=== PATIENT | male | born 1950 | race Caucasian/White ===

== ENCOUNTER 2018-01-22 16:17 | Inpatient (IN) ==
[2018-01-22] MEDS ORDERED: Ipratropium/Albuterol Neb 3 ML IH ONE (16:21)
--- NOTE | 2018-01-22 16:38 | Emergency Department Note ---
Disposition Clinical Impression: HCAP (healthcare-associated pneumonia) Disposition: Admitted As Inpatient Condition: Good Forms: ED Satisfaction Letter SOB HPI - General Chief Complaint: ED Shortness of Breath/Dyspnea Stated Complaint: shortness of breath Time Seen by Provider: 01/22/18 16:20 Source: patient, EMS Limitations: no limitations Nursing Notes Reviewed: Yes Vital Signs Reviewed: Yes - History of Present Illness Patient [facility] a transfer [facility] for [facility], pneumonia, hypoglycemia. Patient has a history of diabetes and takes insulin but has not been eating. The patient has had symptoms for 3 days including cough and productive sputum. The patient underwent treatment at the [facility] and received steroids as well as DuoNeb's. The patient's blood cell count was 14.4 with a hemoglobin of 14.7. Platelets 203. Troponin was negative. Electrolytes with sodium of 138. Potassium 4.3. Glucose of 51. Creatinine of 0.95. PH 7.41. CO2 of 47. This does appear to be his baseline. PO2 of 67. Lactate of 0.9. X-ray shows worsening bibasilar airspace disease concerning for pneumonia. Recommend follow-up chest x-ray Patient takes albuterol, Abandoned, atorvastatin, clonidine, diltiazem, gabapentin, hydrocodone, insulin, methotrexate, potassium, 10 mg of steroids daily. EKG shows A. fib with a ventricular rate of 105. QRS 82. QTC 415. No significant ST elevations or depressions. - Related Data Allergies Allergy/AdvReac Type Severity Reaction Status Date / Time metformin AdvReac See Verified 01/22/18 16:22 Comments Review of Systems: CONSTITUTIONAL: No weight loss, fever, chills, weakness or fatigue. HEENT: Eyes: No visual changes. Ears, Nose, Throat: No hearing loss, difficulty talking or unable to swallow. SKIN: No rash or itching. CARDIOVASCULAR: No chest pain, chest pressure or chest discomfort. No palpitations or edema. RESPIRATORY: Shortness of breath and cough GASTROINTESTINAL: No anorexia, nausea, vomiting or diarrhea. No abdominal pain or blood. GENITOURINARY: No burning on urination or hematuria. NEUROLOGICAL: No headache, dizziness, syncope, paralysis, ataxia, numbness or tingling in the extremities. No change in bowel or bladder control. MUSCULOSKELETAL: No muscle pain, back pain, joint pain or stiffness. Past Medical History - Past Medical History Medical history: Reports: arthritis, atrial fibrillation, cancer, COPD, coronary artery disease, diabetes, hyperlipidemia, hypertension Psychiatric history: Reports: anxiety, ADHD, depression - Social History Smoking Status: Current every day smoker Smokeless Tobacco Status: No Alcohol use: Reports: none Drug use: Reports: none Physical Exam General: Mild tachypnea Head: Normocephalic Atraumatic Eyes: PERRL, EOMI ENT: Airway patent, no stridor Neck: supple, no meningismus Chest: Wheezing and associated bronchi bilaterally Cardiac: Irregular rate and rhythm Abdomen: soft, nontender, nondistended; no guarding, rebound, or tenderness to percussion Musculoskeletal: Calves symmetric, nontender, no palpable cord Skin: No rash, normal skin tone Neuro: Alert and Oriented to person, place, and time; No focal deficit, CN 2-12 symmetric and intact - General Limitations: no limitations General appearance: alert Course - Reevaluation(s) Reevaluation #1: Patient received ceftriaxone while at the [facility]. The patient has had hospitalization for pneumonia at the [facility] within the last 3 months. Patient's antibiotics will be broadened to cover hospital acquired pneumonia. - Consultations Consultation #1: Discussed with Dr. Hilario. Patient accepted for admission. Vital Signs Temperature 98.3 F 01/22/18 16:23 Pulse Rate 119 01/22/18 16:23 Respiratory Rate 105 01/22/18 16:23 Blood Pressure 117/93 01/22/18 16:23 O2 Sat by Pulse Oximetry 93 01/22/18 16:23 Temperature 98.3 F 01/22/18 16:23 Pulse Rate 94 01/22/18 18:00 Respiratory Rate 24 01/22/18 18:00 Blood Pressure 125/70 01/22/18 18:00 O2 Sat by Pulse Oximetry 94 01/22/18 18:00 Oxygen Delivery Oxygen Delivery Nasal Cannula Shortness of Breath/Dyspnea - Lab Data Result diagrams: 01/22/18 18:06 Lab Results 01/22/18 01/22/18 Range/Units 18:06 18:06 WBC 15.9 H (4.3-11.1) K/mcL RBC 4.78 (4.19-5.50) M/mcL Hgb 14.0 (12.9-16.9) g/dL Hct 44.5 (37.5-50.1) % MCV 93.1 (83.0-100.0) fL MCH 29.3 (28.0-33.3) pg MCHC 31.5 L (31.6-35.5) g/dL RDW 16.3 H (11.5-14.5) % Plt Count 199 (140-400) K/mcL MPV 10.4 (9.4-12.4) fL Immature Gran % 0.4 (0-4) % Seg Neutrophils % 96.2 % Lymphocytes % 1.3 % Monocytes % 2.0 % Eosinophils % 0.0 % Basophils % 0.1 % Neutrophils # 15.3 H (1.6-8.9) K/mcL Lymphocytes # 0.2 L (0.6-4.6) K/mcL Monocytes # 0.3 (0.0-1.3) K/mcL Eosinophils # 0.0 (0.0-0.6) K/mcL Basophils # 0.0 (0.0-0.2) K/mcL Lactic Acid 1.5 (0.5-2.2) mmol/L
[2018-01-22] MEDS ORDERED: Piperacillin/Tazobactam 3.375 GM in 0.9 % Sodium Chloride Mini Bag 100 ML IVPB ONE (16:44)
[2018-01-22] MEDS ORDERED: Levofloxacin 750 MG/150 ML 750 MG/150 ML BAG IVPB ONE (16:44)
[2018-01-22] MEDS ORDERED: 0.9 % Sodium Chloride 1,000 ML IVC ONE (16:45)
[2018-01-22 18:24] LABS: Basophils % 0.1 %; Hematocrit 44.5 % (37.5-50.1); Immature Granulocytes % 0.4 % (0-4); Lymphocytes # 0.2 K/mcL (0.6-4.6); Lymphocytes % 1.3 %; Mean Corpuscular HGB Conc 31.5 g/dL (31.6-35.5); Mean Corpuscular Hemoglobin 29.3 pg (28.0-33.3); Mean Corpuscular Volume 93.1 fL (83.0-100.0); Mean Platelet Volume 10.4 fL (9.4-12.4); Monocytes # 0.3 K/mcL (0.0-1.3); Neutrophils # 15.3 K/mcL (1.6-8.9); Platelet Count 199 K/mcL (140-400); Red Blood Count 4.78 M/mcL (4.19-5.50); Red Cell Distribution Width 16.3 % (11.5-14.5); Segmented Neutrophils % 96.2 %
--- NOTE | 2018-01-22 18:28 | Emergency Department Note ---
START Narrative - START START: I examined this patient and my medical decision-making was reviewed with the emergency medicine resident. I agree with the documented findings, disposition and treatment plan as described except to the extent set forth below. Patient seen with emergency medicine resident Dr. Gokul Zuluaga, Please see a copy of his note for details of the H&P, ED evaluation, management and disposition. I have independently evaluated the patient and confirmed appropriate portions of the history and physical exam. Briefly: 67-year-old male smoker [employer] from the [place] transferred from the [facility] for COPD flare and pneumonia. Patient got a dose of IV Rocephin and Zithromax. Patient had bilateral auditory wheezing here. We reviewed his medical records. He got a triple DuoNeb treatment. Patient had an EKG which showed no acute ischemic changes. Hospitalist is being patient for admission. Patient to be admitted in stable condition. Disposition pending
[2018-01-22 18:43] LABS: ABG Base Excess 4 mEq/L (-2 to 3); ABG HCO3 30 mEq/L (21-27); ABG Oxygen Saturation 93 % (95-98); ABG PCO2 50 mmHg (35-45); ABG PH 7.38 pH Units (7.32-7.45); ABG PO2 68 mmHg (85-104); ABG TCO2 31 mEq/L (20-26)
[2018-01-22 18:44] LABS: Alanine Aminotransferase 18 Units/L (7-52); Albumin 3.7 g/dL (3.5-5.7); Albumin/Globulin Ratio 1.3 (1.1-2.2); Alkaline Phosphatase 106 Units/L (34-104); Aspartate Amino Transferase 21 Units/L (13-39); BUN/Creatinine Ratio 14 (6-26); Bilirubin,Total 0.4 mg/dL (0.3-1.0); Blood Urea Nitrogen 14 mg/dL (8-23); Calcium 9.5 mg/dL (8.6-10.3); Carbon Dioxide 29 mEq/L (23-29); Chloride 100 mEq/L (98-107); Globulin 2.9 g/dL (2.4-3.5); Glucose 205 mg/dL (70-105); Osmolality,Calculated 286 (280-300); Potassium 4.8 mEq/L (3.5-5.1); Sodium 135 mEq/L (136-145); Total Protein 6.6 g/dL (6.4-8.9); eGFR For African Americans > 60 (> 60); eGFR For Non-African Americans > 60 (> 60)
[2018-01-22] MEDS ORDERED: Acetaminophen 325 MG TABLET PO PRN (18:59)
[2018-01-22] MEDS ORDERED: *HR* OxyCODONE Immed Rel 5 MG TABLET PO PRN (18:59)
[2018-01-22] MEDS ORDERED: Naloxone 0.4 MG/ML INJ IVP PRN (18:59)
[2018-01-22] MEDS ORDERED: Levofloxacin 750 MG/150 ML 750 MG/150 ML BAG IVPB SCH (20:00)
[2018-01-22] MEDS ORDERED: D5% in Water 1,000 ML IVC PRN (21:01)
[2018-01-22] MEDS ORDERED: *HR* Dextrose 50 % in Water (Syg) 50 ML SYRINGE IVP PRN (21:01)
[2018-01-22] MEDS ORDERED: Dextrose Gel 15 GM/37.5 ML TUBE PO PRN ×2 (21:01)
--- NOTE | 2018-01-22 21:02 | Internal Med History&Physical ---
<Fran Baird - Last Filed: 01/22/18 23:51> Date of Encounter: 01/22/18 Time of Encounter: 18:30 Assessment and Plan (1) HCAP (healthcare-associated pneumonia) Current visit: Yes Status: Acute Acute HCAP. Pt. reports shortness of breath and dyspnea for the past 3 days with need to increase home oxygen from 2 L to 4 L. Associated cough with sputum production. Patient's pneumonia diagnosis complicated by current COPD exacerbation. History of tobacco abuse with 1-2 packs a day patient reports quitting 4 days ago. Patient hospitalized at NH within past 3 months for pneumonia. 2-View CXR today shows superimposed on COPD there is more pronounced congestion and perihilar infiltrates worse in the left lower lobe. Pneumonia is likely. Pt. started on IVPB Levaquin, Zosyn, vancomycin in ED. Will continue IVPB Levaquin at 750 mg daily, Zosyn 3.375 gm Q8, and vancomycin w/pharmacy dosing for infection coverage. Blood cultures 2. Sputum culture. Legionella and strep pneumoniae antigens were ordered. Will adjust abx coverage based on culture results. Supplemental O2 titration if SPO2 monitoring. BiPAP as needed. DuoNeb every 4 hours scheduled. Solu-Medrol 60 mg IVPB every 8. Falls /safety precautions. Monitor patient, vital signs, and f/u labs. Lactic acid 1.5. Will use IV fluids judiciously d/t possibility of overlapping CHF. Pt. discussed w/Dr. Tipton who agrees w/plan of care. Pt. high risk for respiratory distress/failure and possible sepsis based on current sx, pneumonia dx complicated by COPD exacerbation, tobacco abuse, hx, and risk factors. Inpatient. (2) SOB (shortness of breath) Current visit: Yes Status: Acute Acute SOB/dyspnea r/t current exacerbation of COPD complicated by current pneumonia dx. Solumedrol 60 mg IVP Q8. Supplemental O2 w/titration and SpO2 monitoring. BiPap as needed. ABG ordered. DuoNebs Q4 scheduled. Falls/safety precautions. (3) Tachycardia Current visit: Yes Status: Acute Acute tachycardia r/t SOB/dyspnea and hypoxia. Pt. takes 240 mg cardizem in a.m. and reports taking dose this morning. Will monitor timed VS. 20 mg cardizem IVP once ordered. Continuous telemetry. Patient to be monitored closely for possible cardizem drip. (4) Cough Current visit: Yes Status: Acute Acute productive cough w/sputum. Sputum culture ordered. Mucinex. (5) COPD (chronic obstructive pulmonary disease) Current visit: Yes Status: Acute Acute exacerbation of COPD complicated by current pneumonia dx. Supplemental O2 w/titration and SpO2 monitoring. DuoNebs Q4 scheduled. Solumedrol 60 mg IVP Q8. Mucinex for cough. Qualifiers: COPD type: COPD with acute exacerbation Qualified Code(s): J44.1 - Chronic obstructive pulmonary disease with (acute) exacerbation (6) CAD (coronary artery disease) Current visit: Yes Status: Chronic Hx of chronic CAD. Continuous telemetry. Continue pts. Eliquis, Cardizem, Lipitor, and lisinopril. Qualifiers: Coronary Disease-Associated Artery/Lesion type: [place] artery [place] vs. transplanted heart: [place] heart Associated angina: angina presence unspecified Qualified Code(s): I25.10 - Atherosclerotic heart disease of [place] coronary artery without angina pectoris (7) Diabetes Current visit: Yes Status: Chronic Hx of chronic DM controlled w/insulin. BG checks ACHS. A1c in a.m. labs. Continue pts. HS insulin and add low-dose correction insluin sliding scale w/ hypoglycemic protocol. Qualifiers: Diabetes mellitus type: type 2 Diabetes mellitus complication status: with unspecified complications Diabetes mellitus truck terminal manager insulin use: unspecified longterm insulin use status Qualified Code(s): E11.8 - Type 2 diabetes mellitus with unspecified complications (8) HLD (hyperlipidemia) Current visit: Yes Status: Chronic Hx of chronic HLD. Lipid panel in a.m. labs. Continue pts. Lipitor. Qualifiers: Hyperlipidemia type: pure hypercholesterolemia Qualified Code(s): E78.00 - Pure hypercholesterolemia, unspecified; E78.0 - Pure hypercholesterolemia (9) HTN (hypertension) Current visit: Yes Status: Chronic Hx of chronic HTN. Monitor pt. and VS. Continue pts. Lisinopril. Qualifiers: Hypertension type: essential hypertension Qualified Code(s): I10 - Essential (primary) hypertension (10) DVT prophylaxis Current visit: Yes Status: Acute Continue patient's Eliquis for DVT prophylaxis. Monitor pt. for signs of bleeding. Internal Medicine - H&P: HPI Chief complaint: SOB/Dyspnea Admitted From: Emergency Dept Plans for Post Hospital Care: Home History of present illness: Mr. Cagle is a 67 year old male w/PMH of , atrial fibrillation, basal cell carcinoma skin, COPD, CAD, diabetes, HLD, HTN ED with chief complaint of shortness of breath and dyspnea for the past 2 days that became worse over the past day. Pt. reports associated cough w/colored sputum. [facility]. Patient reports shortness of breath, dyspnea, cough with productive sputum, and dizziness associated with SOB but denies fever, chills, nausea, vomiting, changes in vision, headache, chest pain, palpitations, unusual bleeding, abdominal pain, diarrhea, constipation, numbness, tingling, pre-syncope, or syncope. Past Med Surg Social Fam HX - Past Medical History Source: patient, old records reviewed, obtained from family Medical history: arthritis, atrial fibrillation, cancer (Basal cell carcinoma of the skin), COPD, coronary artery disease, diabetes, hyperlipidemia, hypertension Psychiatric history: anxiety, ADHD, depression - Social History Smoking Status: Current every day smoker Packs per day: 1-2 PPD Reports quitting 4 days ago Smokeless Tobacco Status: No Alcohol use: none Drug use: none Current living situation: Home, With Family Activity Level: Independent ambulation, Uses cane/walker Recent Out of Country Travel Within the Last 8 Weeks: No Exposure or Possible Exposure to Illness During Travel: No - Family History Father Race: Family Member Ethnicity: Non- Living Status: Age at : 67 Cause of : Stomach aneurysm Hx Family Cardiac Disorders: Yes (Aneurysm) Mother Race: Family Member Ethnicity: Non- Living Status: Age at : 63 Cause of : Breast cancer Hx Family Cancer: Yes (Breast) Hx Family Endocrine Disorder: Yes (DM) Brother Race: Family Member Ethnicity: Non- Living Status: Age at : 48 Cause of : [place] Hx Family Cardiac Disorders: Yes ([place]) Sister Race: Family Member Ethnicity: Non- Living Status: Age at : 50 Cause of : Lung cancer Hx Family Cancer: Yes (Lung) Internal Medicine - H&P: Meds Albuterol Sulfate [Proair Hfa] 2 puff IH Q4H 01/22/18 [History] Apixaban [Eliquis] 5 mg PO DAILY 01/22/18 [History] Atorvastatin Calcium [Lipitor] 20 mg PO HS 01/22/18 [History] Budesonide/Formoterol 160/4.5 [Symbicort 160/4.5] 2 puff IH BIDR 01/22/18 [ History] Cetirizine HCl [All Day Allergy] 10 mg PO DAILY 01/22/18 [History] Cholecalciferol (D-3) [Vitamin D] 1,000 unit PO DAILY 01/22/18 [History] Cyanocobalamin (Vitamin B-12) [Vitamin B12] 1,000 mcg PO DAILY 01/22/18 [History ] Diltiazem HCl [Diltiazem 24Hr Cd] 240 mg PO DAILY 01/22/18 [History] Folic Acid 1 mg PO DAILY 01/22/18 [History] Gabapentin [Neurontin] 1.5 tab PO Q8H PRN 01/22/18 [History] HYDROcodone/Acet 10/325 mg [[place] 10-325 mg] 1 tab PO Q6HR PRN 01/22/18 [History ] Insulin ASPART [NovoLOG] 10 unit SQ TIDWM 01/22/18 [History] Insulin Glargine,Hum.rec.anlog [Lantus Solostar] 50 unit SQ HS 01/22/18 [History ] Ipratropium/Albuterol Neb [Duoneb] 3 ml IH Q6HR 01/22/18 [History] Lisinopril [Zestril] 40 mg PO DAILY 01/22/18 [History] Methocarbamol [Robaxin-750] 750 mg PO QID PRN 01/22/18 [History] Methotrexate [Otrexup] 12.5 mg PO QWEEK 01/22/18 [History] Oxybutynin [Ditropan] 5 mg PO BID 01/22/18 [History] Potassium Chloride [Klor-Con 10] 10 meq PO DAILY 01/22/18 [History] Tamsulosin [Flomax] 0.4 mg PO DAILY 01/22/18 [History] cloNIDine HCl [CloNIDine HCl] 0.1 mg PO BID 01/22/18 [History] predniSONE [PredniSONE] 10 mg PO AD 01/22/18 [History] 3 Allergy/AdvReac Type Severity Reaction Status Date / Time metformin AdvReac See Verified 01/22/18 16:22 Comments All Systems PM: A 10-system review of systems was performed and is negative for pertinent findings except as documented above in the HPI. - Constitutional Constitutional: no chills, no fever(s), no night sweats - EENT Eyes: no change in vision, no discharge, no pain, no photophobia Ears: no ear discharge, no ear pain, no tinnitus Nose, mouth and throat: no dysphagia, no nasal discharge, no neck pain, no sore throat - Breasts Breasts: as per HPI - Cardiovascular Cardiovascular ROS IM: as per HPI, dyspnea, dyspnea on exertion, lightheadedness , no chest pain, no diaphoresis, no palpitations, no syncope - Respiratory Respiratory: as per HPI, cough, dyspnea on exertion, wheezing, chest congestion , no dyspnea, no excessive phlegm production - Gastrointestinal Gastrointestinal: no abdominal pain, no diarrhea, no hematemesis, no hematochezia, no melena, no nausea, no vomiting - Genitourinary Genitourinary ROS male: as per HPI - Musculoskeletal Musculoskeletal ROS IM: no numbness, no tingling - Integumentary Integumentary IM: no rash, no unusual bruising - Neurological Neurological ROS: no confusion, no convulsions, no focal weakness, no numbness, no tingling, no tremor(s) - Psychiatric Psychiatric: as per HPI, anxiety, depression - Endocrine Endocrine IM: as per HPI - Hematologic/Lymphatic Hematologic/Lymphatic: no easy bruising - Allergic/Immunologic Allergic/Immunologic: as per HPI - Constitutional Vitals: Temp Pulse Resp BP Pulse Ox 98.3 F 122 18 110/78 93 01/22/18 16:23 01/22/18 20:16 01/22/18 20:47 01/22/18 20:47 01/22/18 20:47 General appearance: Present: cooperative, mild distress (Respiratory), A&O X 3, pleasant, obese, answers questions appropriately - Head Head exam: Present: atraumatic, normocephalic - Eye Eye exam: Present: PERRL, conjuntiva pink, sclera anicteric Pupils: Present: PERRL - ENT ENT exam: Present: normal exam - Neck Neck exam general surgery: Present: supple, trachea midline. Absent: lymphadenopathy - Respiratory Respiratory exam: Present: accessory muscle use, respiratory distress (Mild ), wheezes (Bilaterally in all lobes) - Cardiovascular Cardiovascular exam: Present: irregular rhythm (Atrial fibrillation). Absent: diastolic murmur, gallop, rubs, systolic murmur - GI/Abdominal GI/Abdominal exam: Present: normal bowel sounds, soft, no peritoneal signs. Absent: distended, tenderness - Rectal Rectal exam: Present: deferred - Additional comments: exam deferred. - Extremities Exam Extremities exam: Present: pedal edema, warm, radial pulses palpable and symmetrical. Absent: calf tenderness, cyanotic - Back Exam Back exam: Present: normal inspection - Neurological Exam Neurological exam: Present: CN II-XII intact, oriented X3, no focal deficits. Absent: pronater drift, facial droop, speech deficit - Psychiatric Psychiatric exam: Present: normal affect, normal mood - Skin Skin exam: Present: dry, intact Internal Med - H&P Results - Labs CBC & Chem 7: 01/22/18 18:06 01/22/18 18:06 - EKG Data Prior EKG available for review: no EKG comments: 01/22/18 21:41 EKG dated 01/22/18 shows atrial fibrillation with rapid ventricular response. - Impressions Impressions Chest X-Ray 01/22/18 17:36 IMPRESSION: Superimposed on COPD there is more pronounced congestion and perihilar infiltrates worse in the left lower lobe. Pneumonia is likely. D/ / 01/22/2018 18:46:48 Livier Cortez MD / abbi Interpreting Provider: Livier Cortez MD <Tay Tipton P - Last Filed: 01/23/18 19:48> Date of Encounter: 01/23/18 Internal Medicine - H&P: HPI History of present illness: Mr. Cagle is a 67 year old male All Systems PM: A 10-system review of systems was performed and is negative for pertinent findings except as documented above in the HPI. - Constitutional Vitals: Temp Pulse Resp BP Pulse Ox 97.8 F 104 18 113/67 97 01/23/18 16:37 01/23/18 16:37 01/23/18 16:37 01/23/18 16:37 01/23/18 16:37 Internal Med - H&P Results - Labs CBC & Chem 7: 01/23/18 00:50 01/23/18 00:50 Labs: Short CBC 01/23/18 Range/Units 00:50 WBC 13.3 H (4.3-11.1) K/mcL Hgb 13.3 (12.9-16.9) g/dL Hct 42.8 (37.5-50.1) % Plt Count 191 (140-400) K/mcL Neutrophils # 12.7 H (1.6-8.9) K/mcL BMP 01/23/18 00:50 Sodium 138 Potassium 4.5 Chloride 104 Carbon Dioxide 27 BUN 16 Creatinine 0.97 Glucose 208 H Calcium 9.2 Liver Function 01/23/18 Range/Units 00:50 Total Bilirubin 0.4 (0.3-1.0) mg/dL AST 22 (13-39) Units/L ALT 20 (7-52) Units/L Alkaline Phosphatase 96 (34-104) Units/L Albumin 3.6 (3.5-5.7) g/dL - Attending Attestation I examined this patient and my medical decision-making was reviewed with the Resident Physician/MILLINER HELPER. I agree with the documented findings, disposition and treatment plan as described except to the extent set forth below.
[2018-01-22] MEDS ORDERED: predniSONE 10 MG TABLET PO SCH (22:00)
[2018-01-22] MEDS: Insulin LISPRO 300 UNITS/3 ML VIAL SQ SCH (22:11)
[2018-01-22] MEDS: Budesonide/Formoterol 160/4.5 MDI IH SCH (22:46)
[2018-01-22] MEDS: Ipratropium/Albuterol Neb 3 ML IH SCH (23:03)
[2018-01-22] MEDS ORDERED: *HR* LORazepam 2 MG/ML VIAL IVP PRN (23:31)
[2018-01-22] MEDS: Insulin DETEMIR 100 UNIT/ML X5UNITS SQ SCH (23:58)
[2018-01-22] MEDS: methylPREDNISolone 125 MG/2 ML VIAL IVP SCH (23:59)
[2018-01-23 01:16] LABS: Basophils % 0.1 %; Hematocrit 42.8 % (37.5-50.1); Hemoglobin 13.3 g/dL (12.9-16.9); Immature Granulocytes % 0.4 % (0-4); Lymphocytes # 0.4 K/mcL (0.6-4.6); Lymphocytes % 2.6 %; Mean Corpuscular HGB Conc 31.1 g/dL (31.6-35.5); Mean Corpuscular Volume 93.2 fL (83.0-100.0); Mean Platelet Volume 10.4 fL (9.4-12.4); Monocytes # 0.3 K/mcL (0.0-1.3); Neutrophils # 12.7 K/mcL (1.6-8.9); Platelet Count 191 K/mcL (140-400); Red Blood Count 4.59 M/mcL (4.19-5.50); Red Cell Distribution Width 16.2 % (11.5-14.5); Segmented Neutrophils % 94.9 %
[2018-01-23 01:24] LABS: Alanine Aminotransferase 20 Units/L (7-52); Albumin 3.6 g/dL (3.5-5.7); Albumin/Globulin Ratio 1.3 (1.1-2.2); Alkaline Phosphatase 96 Units/L (34-104); Aspartate Amino Transferase 22 Units/L (13-39); BUN/Creatinine Ratio 16 (6-26); Bilirubin,Total 0.4 mg/dL (0.3-1.0); Blood Urea Nitrogen 16 mg/dL (8-23); Calcium 9.2 mg/dL (8.6-10.3); Carbon Dioxide 27 mEq/L (23-29); Chloride 104 mEq/L (98-107); Chol/HDL Ratio 2.8 (0-4.9); Cholesterol 138 mg/dL (< 200); Globulin 2.7 g/dL (2.4-3.5); Glucose 208 mg/dL (70-105); HDL Cholesterol 49 mg/dL (40-59); LDL Cholesterol,Calculated 78 mg/dL (0-99); Osmolality,Calculated 293 (280-300); Potassium 4.5 mEq/L (3.5-5.1); Sodium 138 mEq/L (136-145); Total Protein 6.3 g/dL (6.4-8.9); Triglycerides 57 mg/dL (< 150); eGFR For African Americans > 60 (> 60); eGFR For Non-African Americans > 60 (> 60)
[2018-01-23] MEDS ORDERED: Piperacillin/Tazobactam 3.375 GM in 0.9 % Sodium Chloride Mini Bag 100 ML IVPB SCH (02:00)
[2018-01-23] MEDS: Methocarbamol 750 MG TABLET PO PRN (02:13)
[2018-01-23] MEDS: Ipratropium/Albuterol Neb 3 ML IH SCH ×6 (04:17→23:58)
[2018-01-23] MEDS: Budesonide/Formoterol 160/4.5 MDI IH SCH ×2 (07:46→19:56)
[2018-01-23] MEDS ORDERED: Aminoglycoside Consult 1 EACH MC ONE (08:04)
[2018-01-23] MEDS: Insulin LISPRO 300 UNITS/3 ML VIAL SQ SCH ×4 (08:18→20:14)
[2018-01-23] MEDS: methylPREDNISolone 125 MG/2 ML VIAL IVP SCH ×2 (08:19→15:38)
--- NOTE | 2018-01-23 09:03 | Internal Med Progress Note ---
Date of Encounter: 01/23/18 Time of Encounter: 09:45 - Assessment and plan (1) HCAP (healthcare-associated pneumonia) Current Visit: Yes Status: Acute Assessment and plan: Chest x-ray showed perihilar infiltrates and congestion worse in the left lower lobe. Urine showed positive for strep pneumoniae. Initially placed on Levaquin , Zosyn. Plan: - de-escalating antibiotics to Levaquin (day 01/03) - Continue Solu-Medrol 60 mg IV every 8 hours, patient's home meds have prednisone 10mg daily - [place] DuoNeb - BC and sputum culture pending - continue supportive oxygen therapy (2) COPD (chronic obstructive pulmonary disease) Current Visit: No Status: Acute Assessment and plan: See plan above. We will continue steroids and DuoNeb's Qualifiers: COPD type: COPD with acute exacerbation Qualified Code(s): J44.1 - Chronic obstructive pulmonary disease with (acute) exacerbation (3) DVT prophylaxis Current Visit: No Status: Acute Assessment and plan: Patient on Eliquis. (4) Tachycardia Current Visit: No Status: Acute Assessment and plan: Most likely secondary to DuoNeb vs. afib vs dehydration, can consider switching to levalbuterol. Considered PE as patient has hypoxia and tachycardia but patient is on eliquis, troponin is negative and patient is w/o chest pain. Last Echo 2016 EF 50%. Bolus and cardizem decreased HR. Plan: - 500ml fluid bolus -cardizem 5mg IVP - consider increasing Cardizem to 300mg PO daily if continues (5) Afib Current Visit: Yes Status: Chronic Assessment and plan: Continue Eliquis, Cardizem, Lipitor, and lisinopril. Patient on telemetry. Currently in Afib with rate of 105bpm. Will give Cardizem 5mg IVP now. Qualifiers: Atrial fibrillation type: paroxysmal Qualified Code(s): I48.0 - Paroxysmal atrial fibrillation (6) Diabetes Current Visit: No Status: Chronic Assessment and plan: Hx of chronic DM controlled w/insulin. BG checks ACHS. A1c in a.m. labs. Continue pts. 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 Cagle is a 67 year old male sent from the [place] w/PMH of atrial fibrillation , basal cell carcinoma skin, COPD, CAD, diabetes, HLD, HTN ED with chief complaint of shortness of breath for the past 2 days found to have HCAP and COPD exacerbation. Today patient states that he is breathing better than yesterday. Patient states that he has not been diagnosed with CHF and does not take anything for swelling. He is on 2L NC at rest and 3L during exertion at baseline. Patient denies chest pain. Other than stated in history of present illness, 10 point ROS is negative. - Constitutional Vitals: Temp Pulse Resp BP Pulse Ox 97.8 F 110 16 142/100 97 01/23/18 07:00 01/23/18 07:00 01/23/18 07:50 01/23/18 07:00 01/23/18 07:50 General appearance: Present: cooperative, mild distress (Respiratory), A&O X 3, pleasant, obese, answers questions appropriately Exam: Constitutional: Alert, in no acute distress, well nourished, well developed. Head: Normocephalic, atraumatic Heart: Irregularly irregular Lungs: Scattered wheezing bilaterally, decreased movement of air in bases, prolonged expiratory phase 1:3 Abdomen: Soft, nondistended, nontender. Extremities: No clubbing, cyanosis, or edema, radial pulse +2/4, capillary refill <2sec. Skin: Skin warm and dry, no lesions, no rashes, no jaundice Neurologic: Cranial nerves II through XII grossly intact, no focal deficits, strength within normal limits in all extremities Psych: Cooperative with exam, good eye contact, cognitive function intact, judgment good insight good, speech clear, Internal Medicine: Result - Labs CBC & Chem 7: 01/23/18 00:50 01/23/18 00:50 Labs: Short CBC 01/23/18 Range/Units 00:50 WBC 13.3 H (4.3-11.1) K/mcL Hgb 13.3 (12.9-16.9) g/dL Hct 42.8 (37.5-50.1) % Plt Count 191 (140-400) K/mcL Neutrophils # 12.7 H (1.6-8.9) K/mcL BMP 01/23/18 00:50 Sodium 138 Potassium 4.5 Chloride 104 Carbon Dioxide 27 BUN 16 Creatinine 0.97 Glucose 208 H Calcium 9.2 Liver Function 01/23/18 Range/Units 00:50 Total Bilirubin 0.4 (0.3-1.0) mg/dL AST 22 (13-39) Units/L ALT 20 (7-52) Units/L Alkaline Phosphatase 96 (34-104) Units/L Albumin 3.6 (3.5-5.7) g/dL - ABG Interpretation ABG results: ABG ABG pH 7.38 pH Units (7.32-7.45) 01/22/18 18:40 ABG pCO2 50 mmHg (35-45) H 01/22/18 18:40 ABG pO2 68 mmHg (85-104) L 01/22/18 18:40 ABG O2 Saturation 93 % (95-98) L 01/22/18 18:40 Consult Discharge Plan - Plan [facility]errals: [facility] [Primary Care Provider[facility] -
[2018-01-23] MEDS: *HR* HYDROcodone/Acet 5/325 mg TABLET PO PRN ×2 (09:07→20:03)
[2018-01-23] MEDS: Diltiazem CD (24hr) 240 MG CAPSULE PO SCH (09:07)
[2018-01-23] MEDS: Lisinopril 20 MG TABLET PO SCH (09:07)
[2018-01-23] MEDS: Gabapentin 300 MG CAPSULE PO PRN ×2 (09:07→20:03)
[2018-01-23] MEDS: cloNIDine HCl 0.1 MG TABLET PO SCH ×2 (09:08→20:04)
[2018-01-23] MEDS: Loratadine 10 MG TABLET PO SCH (09:36)
[2018-01-23] MEDS: Apixaban 5 MG TABLET PO SCH (09:36)
[2018-01-23] MEDS: Cyanocobalamin (B-12) 1,000 MCG TABLET PO SCH (09:36)
[2018-01-23] MEDS: Folic Acid 1 MG TABLET PO SCH (09:36)
[2018-01-23] MEDS: Cholecalciferol (D-3) 1,000 UNIT TABLET PO SCH (09:37)
--- NOTE | 2018-01-23 09:44 | Event Note ---
Date of Encounter: 01/23/18 Time of Encounter: 09:32 Patient seen and examined. Agree with the note as written by the resident, Dr. Goins. I have provided direct supervision. Patient admitted with acute on chronic hypoxic resp failure. Being treated for HCAP/COPD exac. Was on Bipap and now on 5L. Tachycardic and in afib. rate around 110. Has h/o afib c/w current abx. f/u on cultures De escalate abx to Levaquin only Positive S. Pneumo in urine c/w IV steroids as is for now. Give 5 IV cardizem now. Consider increasing oral cardizem if continues to be tachy c/w O2 support. Wean as tolerated c/w nebs c/w Eliquis
[2018-01-23] MEDS ORDERED: 0.9 % Sodium Chloride 500 ML IVC ONE (09:55)
[2018-01-23 12:02] LABS: Hemoglobin A1C 7.6 %
--- NOTE | 2018-01-23 20:02 | Electrocardiograph Report ---
[place] [id number] Test Date: 2018-01-22 Pat Name: Marvin Cagle Department: 111 Room: 2NE33 Gender: M Database Administration Project Manager: [facility] : 1950 Requested By: Fran Baird Order Number: [id number] Reading MD: Sage Hadley DO Measurements Intervals [place] Rate: 111 P: MT: 0 QRS: 62 QRSD: 87 T: 52 QT: 305 QTc: 370 Interpretive Statements ATRIAL FIBRILLATION WITH RAPID VENTRICULAR RESPONSE WITH ABERRANT CONDUCTION OR VENTRICULAR PREMATURE COMPLEXES Electronically Signed On 01-23-2018 20:00:15 EST by Sage Hadley DO
[2018-01-23] MEDS: Levofloxacin 750 MG/150 ML 750 MG/150 ML BAG IVPB SCH (20:03)
[2018-01-23] MEDS: Insulin DETEMIR 100 UNIT/ML X5UNITS SQ SCH (20:04)
[2018-01-24] MEDS: methylPREDNISolone 125 MG/2 ML VIAL IVP SCH ×4 (00:36→23:31)
[2018-01-24] MEDS: Ipratropium/Albuterol Neb 3 ML IH SCH ×6 (03:48→23:30)
[2018-01-24 05:57] LABS: Basophils % 0.1 %; Hematocrit 38.3 % (37.5-50.1); Hemoglobin 11.8 g/dL (12.9-16.9); Immature Granulocytes % 0.6 % (0-4); Lymphocytes # 0.5 K/mcL (0.6-4.6); Lymphocytes % 3.2 %; Mean Corpuscular HGB Conc 30.8 g/dL (31.6-35.5); Mean Corpuscular Hemoglobin 29.1 pg (28.0-33.3); Mean Corpuscular Volume 94.6 fL (83.0-100.0); Mean Platelet Volume 10.1 fL (9.4-12.4); Monocytes # 0.5 K/mcL (0.0-1.3); Monocytes % 3.3 %; Neutrophils # 13.1 K/mcL (1.6-8.9); Platelet Count 178 K/mcL (140-400); Red Blood Count 4.05 M/mcL (4.19-5.50); Red Cell Distribution Width 16.1 % (11.5-14.5); Segmented Neutrophils % 92.8 %
[2018-01-24 06:21] LABS: Alanine Aminotransferase 18 Units/L (7-52); Albumin 3.1 g/dL (3.5-5.7); Albumin/Globulin Ratio 1.3 (1.1-2.2); Alkaline Phosphatase 77 Units/L (34-104); Aspartate Amino Transferase 17 Units/L (13-39); BUN/Creatinine Ratio 24 (6-26); Bilirubin,Total 0.2 mg/dL (0.3-1.0); Blood Urea Nitrogen 22 mg/dL (8-23); Carbon Dioxide 28 mEq/L (23-29); Chloride 109 mEq/L (98-107); Globulin 2.4 g/dL (2.4-3.5); Glucose 186 mg/dL (70-105); Osmolality,Calculated 300 (280-300); Potassium 4.6 mEq/L (3.5-5.1); Sodium 141 mEq/L (136-145); Total Protein 5.5 g/dL (6.4-8.9); eGFR For African Americans > 60 (> 60); eGFR For Non-African Americans > 60 (> 60)
[2018-01-24] MEDS: Budesonide/Formoterol 160/4.5 MDI IH SCH ×2 (07:57→20:18)
[2018-01-24] MEDS: Insulin LISPRO 300 UNITS/3 ML VIAL SQ SCH ×4 (08:51→22:17)
[2018-01-24] MEDS: Folic Acid 1 MG TABLET PO SCH (08:55)
[2018-01-24] MEDS: Apixaban 5 MG TABLET PO SCH (08:55)
[2018-01-24] MEDS: Loratadine 10 MG TABLET PO SCH (08:55)
[2018-01-24] MEDS: Cyanocobalamin (B-12) 1,000 MCG TABLET PO SCH (08:55)
[2018-01-24] MEDS: Diltiazem CD (24hr) 240 MG CAPSULE PO SCH (08:56)
[2018-01-24] MEDS: Cholecalciferol (D-3) 1,000 UNIT TABLET PO SCH (08:56)
[2018-01-24] MEDS: *HR* HYDROcodone/Acet 5/325 mg TABLET PO PRN ×2 (09:01→19:46)
[2018-01-24] MEDS: Gabapentin 300 MG CAPSULE PO PRN ×2 (09:01→19:46)
[2018-01-24] MEDS: cloNIDine HCl 0.1 MG TABLET PO SCH ×2 (11:04→22:15)
[2018-01-24] MEDS: Lisinopril 20 MG TABLET PO SCH (11:04)
[2018-01-24] MEDS: Methocarbamol 750 MG TABLET PO PRN (14:16)
--- NOTE | 2018-01-24 17:03 | Internal Med Progress Note ---
Date of Encounter: 01/24/18 Time of Encounter: 16:59 - Assessment and plan (1) HCAP (healthcare-associated pneumonia) Current Visit: Yes Status: Acute Assessment and plan: Chest x-ray showed perihilar infiltrates and congestion worse in the left lower lobe. Urine showed positive for strep pneumoniae. Initially placed on Levaquin , Zosyn. Plan: - Continue Levaquin - will change to amoxicillin given + Strep pneumo antigen - Continue Solu-Medrol 60 mg IV every 8 hours, patient's home meds have prednisone 10mg daily - [place] DuoNeb - BC and sputum culture pending - continue supportive oxygen therapy (2) COPD (chronic obstructive pulmonary disease) Current Visit: No Status: Acute Assessment and plan: See plan above. We will continue steroids and DuoNeb's Qualifiers: COPD type: COPD with acute exacerbation Qualified Code(s): J44.1 - Chronic obstructive pulmonary disease with (acute) exacerbation (3) Afib Current Visit: Yes Status: Chronic Assessment and plan: Continue Eliquis, Cardizem Qualifiers: Atrial fibrillation type: paroxysmal Qualified Code(s): I48.0 - Paroxysmal atrial fibrillation (4) CAD (coronary artery disease) Current Visit: No Status: Chronic Qualifiers: Coronary Disease-Associated Artery/Lesion type: [place] artery [place] vs. transplanted heart: [place] heart Associated angina: angina presence unspecified Qualified Code(s): I25.10 - Atherosclerotic heart disease of [place] coronary artery without angina pectoris (5) Diabetes Current Visit: No Status: Chronic Assessment and plan: ISS Levemir 50units HS Diabetic/Cardiac diet Qualifiers: Diabetes mellitus type: type 2 Diabetes mellitus complication status: with unspecified complications Diabetes mellitus rat exterminator insulin use: unspecified snf insulin use status Qualified Code(s): E11.8 - Type 2 diabetes mellitus with unspecified complications (6) HLD (hyperlipidemia) Current Visit: No Status: Chronic Assessment and plan: Lipitor Qualifiers: Hyperlipidemia type: pure hypercholesterolemia Qualified Code(s): E78.00 - Pure hypercholesterolemia, unspecified; E78.0 - Pure hypercholesterolemia (7) HTN (hypertension) Current Visit: No Status: Chronic Assessment and plan: Lisinopril 40 mg daily Hydralazine IV Q6H prn Cardizem 240 mg daily Qualifiers: Hypertension type: essential hypertension Qualified Code(s): I10 - Essential (primary) hypertension (8) DVT prophylaxis Current Visit: No Status: Acute Assessment and plan: Patient on Eliquis. - Subjective Interval history: no acute events. Patient still feels like labored breathing and not at baseline. - Constitutional Vitals: Temp Pulse Resp BP Pulse Ox 97.9 F 77 17 102/64 95 01/24/18 16:00 01/24/18 16:00 01/24/18 16:00 01/24/18 16:00 01/24/18 16:00 General appearance: Present: cooperative, mild distress (Respiratory), A&O X 3, pleasant, obese, answers questions appropriately - Head Head exam: Present: atraumatic, normocephalic - Eye Eye exam: Present: PERRL, conjuntiva pink, sclera anicteric Pupils: Present: PERRL - Neck Neck exam general surgery: Present: supple, trachea midline. Absent: lymphadenopathy - Respiratory Respiratory exam: Present: decreased breath sounds, prolonged expiratory phase, respiratory distress, wheezes. Absent: accessory muscle use, rales, rhonchi - Cardiovascular Cardiovascular exam: Present: RRR, +S1, +S2. Absent: diastolic murmur, gallop, rubs, systolic murmur - GI/Abdominal GI/Abdominal exam: Present: normal bowel sounds, soft, no peritoneal signs. Absent: distended, tenderness - Extremities Exam Extremities exam: Present: warm, radial pulses palpable and symmetrical. Absent : calf tenderness, cyanotic, pedal edema - Neurological Exam Neurological exam: Present: CN II-XII intact, oriented X3, no focal deficits. Absent: pronater drift, facial droop, speech deficit - Skin Skin exam: Present: dry, intact Internal Medicine: Result - Labs CBC & Chem 7: 01/24/18 05:40 01/24/18 05:40 Labs: Short CBC 01/24/18 Range/Units 05:40 WBC 14.2 H (4.3-11.1) K/mcL Hgb 11.8 L D (12.9-16.9) g/dL Hct 38.3 (37.5-50.1) % Plt Count 178 (140-400) K/mcL Neutrophils # 13.1 H (1.6-8.9) K/mcL BMP 01/24/18 05:40 Sodium 141 Potassium 4.6 Chloride 109 H Carbon Dioxide 28 BUN 22 Creatinine 0.91 Glucose 186 H Calcium 9.0 Liver Function 01/24/18 Range/Units 05:40 Total Bilirubin 0.2 L (0.3-1.0) mg/dL AST 17 (13-39) Units/L ALT 18 (7-52) Units/L Alkaline Phosphatase 77 (34-104) Units/L Albumin 3.1 L (3.5-5.7) g/dL - ABG Interpretation ABG results: ABG ABG pH 7.38 pH Units (7.32-7.45) 01/22/18 18:40 ABG pCO2 50 mmHg (35-45) H 01/22/18 18:40 ABG pO2 68 mmHg (85-104) L 01/22/18 18:40 ABG O2 Saturation 93 % (95-98) L 01/22/18 18:40 Consult Discharge Plan - Plan [facility]errals: [facility] [Primary Care Provider] -
[2018-01-24] MEDS: Levofloxacin 750 MG/150 ML 750 MG/150 ML BAG IVPB SCH (19:47)
[2018-01-24] MEDS: Insulin DETEMIR 100 UNIT/ML X5UNITS SQ SCH (22:20)
[2018-01-25] MEDS: Ipratropium/Albuterol Neb 3 ML IH SCH ×5 (03:57→20:30)
[2018-01-25] MEDS: Budesonide/Formoterol 160/4.5 MDI IH SCH ×2 (07:59→20:30)
[2018-01-25 08:08] LABS: Basophils % 0.1 %; Hematocrit 43.5 % (37.5-50.1); Immature Granulocytes % 1.7 % (0-4); Immature Platelets 5.2 % (1.1-6.1); Lymphocytes # 0.6 K/mcL (0.6-4.6); Lymphocytes % 3.6 %; Mean Corpuscular HGB Conc 29.9 g/dL (31.6-35.5); Mean Corpuscular Volume 97.1 fL (83.0-100.0); Mean Platelet Volume 9.8 fL (9.4-12.4); Monocytes # 0.4 K/mcL (0.0-1.3); Monocytes % 2.3 %; Neutrophils # 14.3 K/mcL (1.6-8.9); Nucleated Red Blood Cells 0.2 /100 WBC (0); Platelet Count 208 K/mcL (140-400); Red Blood Count 4.48 M/mcL (4.19-5.50); Red Cell Distribution Width 16.4 % (11.5-14.5); Segmented Neutrophils % 92.3 %
[2018-01-25 08:26] LABS: Alanine Aminotransferase 21 Units/L (7-52); Albumin 3.4 g/dL (3.5-5.7); Albumin/Globulin Ratio 1.3 (1.1-2.2); Alkaline Phosphatase 85 Units/L (34-104); Aspartate Amino Transferase 16 Units/L (13-39); BUN/Creatinine Ratio 25 (6-26); Bilirubin,Total 0.3 mg/dL (0.3-1.0); Blood Urea Nitrogen 23 mg/dL (8-23); Calcium 9.3 mg/dL (8.6-10.3); Carbon Dioxide 32 mEq/L (23-29); Chloride 104 mEq/L (98-107); Globulin 2.7 g/dL (2.4-3.5); Glucose 184 mg/dL (70-105); Osmolality,Calculated 300 (280-300); Potassium 4.5 mEq/L (3.5-5.1); Sodium 141 mEq/L (136-145); Total Protein 6.1 g/dL (6.4-8.9); eGFR For African Americans > 60 (> 60); eGFR For Non-African Americans > 60 (> 60)
[2018-01-25] MEDS: Insulin LISPRO 300 UNITS/3 ML VIAL SQ SCH ×4 (08:34→21:10)
[2018-01-25] MEDS: methylPREDNISolone 125 MG/2 ML VIAL IVP SCH ×3 (08:35→23:33)
[2018-01-25] MEDS: Apixaban 5 MG TABLET PO SCH (08:37)
[2018-01-25] MEDS: Cyanocobalamin (B-12) 1,000 MCG TABLET PO SCH (08:37)
[2018-01-25] MEDS: Lisinopril 20 MG TABLET PO SCH (08:37)
[2018-01-25] MEDS: cloNIDine HCl 0.1 MG TABLET PO SCH ×2 (08:38→21:08)
[2018-01-25] MEDS: Diltiazem CD (24hr) 240 MG CAPSULE PO SCH (08:38)
[2018-01-25] MEDS: Loratadine 10 MG TABLET PO SCH (08:38)
[2018-01-25] MEDS: Folic Acid 1 MG TABLET PO SCH (08:38)
[2018-01-25] MEDS: Cholecalciferol (D-3) 1,000 UNIT TABLET PO SCH (08:38)
[2018-01-25] MEDS: Gabapentin 300 MG CAPSULE PO PRN (17:08)
[2018-01-25] MEDS: *HR* HYDROcodone/Acet 5/325 mg TABLET PO PRN (17:08)
[2018-01-25] MEDS: Levofloxacin 750 MG/150 ML 750 MG/150 ML BAG IVPB SCH (21:08)
[2018-01-25] MEDS: Methocarbamol 750 MG TABLET PO PRN (21:08)
[2018-01-25] MEDS: Insulin DETEMIR 100 UNIT/ML X5UNITS SQ SCH (21:25)
--- NOTE | 2018-01-25 21:55 | Internal Med Progress Note ---
Date of Encounter: 01/25/18 Time of Encounter: 10:55 - Assessment and plan (1) HCAP (healthcare-associated pneumonia) Status: Acute Assessment and plan: Chest x-ray showed perihilar infiltrates and congestion worse in the left lower lobe. Urine showed positive for strep pneumoniae. Initially placed on Levaquin , Zosyn. Plan: - Continue Levaquin - will change to amoxicillin given + Strep pneumo antigen - Continue Solu-Medrol 60 mg IV every 8 hours, patient's home meds have prednisone 10mg daily - [place] DuoNeb - BC and sputum culture pending - continue supportive oxygen therapy (2) COPD (chronic obstructive pulmonary disease) Status: Acute Assessment and plan: See plan above. We will continue steroids and DuoNeb's Qualifiers: COPD type: COPD with acute exacerbation Qualified Code(s): J44.1 - Chronic obstructive pulmonary disease with (acute) exacerbation (3) Afib Status: Chronic Assessment and plan: Continue Eliquis, Cardizem Qualifiers: Atrial fibrillation type: paroxysmal Qualified Code(s): I48.0 - Paroxysmal atrial fibrillation (4) CAD (coronary artery disease) Status: Chronic Qualifiers: Coronary Disease-Associated Artery/Lesion type: [place] artery [place] vs. transplanted heart: [place] heart Associated angina: angina presence unspecified Qualified Code(s): I25.10 - Atherosclerotic heart disease of [place] coronary artery without angina pectoris (5) Diabetes Status: Chronic Assessment and plan: ISS Levemir 50units HS Diabetic/Cardiac diet Qualifiers: Diabetes mellitus type: type 2 Diabetes mellitus complication status: with unspecified complications Diabetes mellitus termite control servicer insulin use: unspecified termite control servicer insulin use status Qualified Code(s): E11.8 - Type 2 diabetes mellitus with unspecified complications (6) HLD (hyperlipidemia) Status: Chronic Assessment and plan: Lipitor Qualifiers: Hyperlipidemia type: pure hypercholesterolemia Qualified Code(s): E78.00 - Pure hypercholesterolemia, unspecified; E78.0 - Pure hypercholesterolemia (7) HTN (hypertension) Status: Chronic Assessment and plan: Lisinopril 40 mg daily Hydralazine IV Q6H prn Cardizem 240 mg daily Qualifiers: Hypertension type: essential hypertension Qualified Code(s): I10 - Essential (primary) hypertension (8) DVT prophylaxis Status: Acute Assessment and plan: Patient on Eliquis. - Subjective Interval history: no acute events. Patient still feels like labored breathing and not at baseline. - Constitutional Vitals: Temp Pulse Resp BP Pulse Ox 97.5 F L 94 20 157/91 98 01/25/18 21:00 01/25/18 21:00 01/25/18 21:00 01/25/18 21:00 01/25/18 21:00 General appearance: Present: cooperative, A&O X 3, pleasant, obese, answers questions appropriately Exam: CVS: RRR Lungs: decreased breath sounds, + wheezing Ext: trace bipedal non pitting edema Internal Medicine: Result - Labs CBC & Chem 7: 01/26/18 06:05 01/26/18 06:05 Labs: Short CBC 01/25/18 Range/Units 07:44 WBC 15.5 H (4.3-11.1) K/mcL Hgb 13.0 (12.9-16.9) g/dL Hct 43.5 (37.5-50.1) % Plt Count 208 (140-400) K/mcL Neutrophils # 14.3 H (1.6-8.9) K/mcL BMP 01/25/18 07:44 Sodium 141 Potassium 4.5 Chloride 104 Carbon Dioxide 32 H BUN 23 Creatinine 0.93 Glucose 184 H Calcium 9.3 Liver Function 01/25/18 Range/Units 07:44 Total Bilirubin 0.3 (0.3-1.0) mg/dL AST 16 (13-39) Units/L ALT 21 (7-52) Units/L Alkaline Phosphatase 85 (34-104) Units/L Albumin 3.4 L (3.5-5.7) g/dL - ABG Interpretation ABG results: ABG ABG pH 7.38 pH Units (7.32-7.45) 01/22/18 18:40 ABG pCO2 50 mmHg (35-45) H 01/22/18 18:40 ABG pO2 68 mmHg (85-104) L 01/22/18 18:40 ABG O2 Saturation 93 % (95-98) L 01/22/18 18:40 - Impressions Impressions Chest X-Ray 01/25/18 09:19 IMPRESSION: Improvement in the appearance of the chest. No significant acute abnormality. Probable slight right basilar atelectasis and slight emphysematous changes. D/ / Raimundo Mahan MD / Raimundo Mahan MD Interpreting Provider: Raimundo Mahan MD Consult Discharge Plan - Plan Instructions: Prednisone (By mouth), Amoxicillin/Clavulanate Potassium (By mouth), Atrial Fibrillation (DC), Diabetes Mellitus Type 2 in Adults (DC), Chronic Obstructive Pulmonary Disease (DC), Chronic Hypertension (DC), Pneumonia (DC) [facility]errals: [facility] [Primary Care Provider] - Prescriptions: Amoxicillin [Amoxil] 1,000 mg PO TID #18 capsule predniSONE [PredniSONE] 10 mg PO DAILY #21 tablet
[2018-01-26] MEDS: Ipratropium/Albuterol Neb 3 ML IH SCH ×5 (00:33→15:29)
[2018-01-26 07:40] LABS: Alanine Aminotransferase 19 Units/L (7-52); Albumin 3.1 g/dL (3.5-5.7); Albumin/Globulin Ratio 1.3 (1.1-2.2); Alkaline Phosphatase 86 Units/L (34-104); Aspartate Amino Transferase 14 Units/L (13-39); BUN/Creatinine Ratio 27 (6-26); Bilirubin,Total 0.2 mg/dL (0.3-1.0); Blood Urea Nitrogen 24 mg/dL (8-23); Calcium 9.1 mg/dL (8.6-10.3); Carbon Dioxide 31 mEq/L (23-29); Chloride 102 mEq/L (98-107); Globulin 2.4 g/dL (2.4-3.5); Glucose 246 mg/dL (70-105); Osmolality,Calculated 300 (280-300); Potassium 4.4 mEq/L (3.5-5.1); Sodium 139 mEq/L (136-145); Total Protein 5.5 g/dL (6.4-8.9); eGFR For African Americans > 60 (> 60); eGFR For Non-African Americans > 60 (> 60)
[2018-01-26] MEDS: Budesonide/Formoterol 160/4.5 MDI IH SCH (07:45)
[2018-01-26] MEDS: Diltiazem CD (24hr) 240 MG CAPSULE PO SCH (08:12)
[2018-01-26] MEDS: Loratadine 10 MG TABLET PO SCH (08:12)
[2018-01-26] MEDS: methylPREDNISolone 125 MG/2 ML VIAL IVP SCH (08:12)
[2018-01-26] MEDS: Apixaban 5 MG TABLET PO SCH (08:13)
[2018-01-26] MEDS: Cholecalciferol (D-3) 1,000 UNIT TABLET PO SCH (08:13)
[2018-01-26] MEDS: Folic Acid 1 MG TABLET PO SCH (08:13)
[2018-01-26] MEDS: Lisinopril 20 MG TABLET PO SCH (08:13)
[2018-01-26] MEDS: cloNIDine HCl 0.1 MG TABLET PO SCH (08:13)
[2018-01-26] MEDS: Cyanocobalamin (B-12) 1,000 MCG TABLET PO SCH (08:13)
[2018-01-26] MEDS: Insulin LISPRO 300 UNITS/3 ML VIAL SQ SCH ×2 (08:14→12:13)
[2018-01-26 08:15] LABS: Basophils % 0.2 %; Hematocrit 38.9 % (37.5-50.1); Hemoglobin 12.2 g/dL (12.9-16.9); Immature Granulocytes % 0.9 % (0-4); Lymphocytes # 0.5 K/mcL (0.6-4.6); Lymphocytes % 4.5 %; Mean Corpuscular HGB Conc 31.4 g/dL (31.6-35.5); Mean Corpuscular Hemoglobin 29.5 pg (28.0-33.3); Mean Platelet Volume 9.9 fL (9.4-12.4); Monocytes # 0.4 K/mcL (0.0-1.3); Monocytes % 3.1 %; Neutrophils # 10.7 K/mcL (1.6-8.9); Platelet Count 180 K/mcL (140-400); Red Blood Count 4.14 M/mcL (4.19-5.50); Segmented Neutrophils % 91.3 %
[2018-01-26] MEDS: Gabapentin 300 MG CAPSULE PO PRN (12:10)
[2018-01-26] MEDS: *HR* HYDROcodone/Acet 5/325 mg TABLET PO PRN (12:11)
[2018-01-26 12:14] VITALS: BP 141/95
--- NOTE | 2018-01-26 14:52 | Discharge Summary ---
Orders not resulted at time of discharge: Pending orders 01/24/18 05:40 Culture,Blood [BC] AM 0400 Culture,Blood,Additional [BC] AM 0400 Date of Encounter: 01/26/18 Time of Encounter: 14:49 - Discharge Diagnosis (1) HCAP (healthcare-associated pneumonia) Priority: Primary Status: Acute (2) COPD (chronic obstructive pulmonary disease) Priority: Secondary Status: Acute Qualifiers: COPD type: COPD with acute exacerbation Qualified Code(s): J44.1 - Chronic obstructive pulmonary disease with (acute) exacerbation (3) Afib Priority: Secondary Status: Chronic Qualifiers: Atrial fibrillation type: paroxysmal Qualified Code(s): I48.0 - Paroxysmal atrial fibrillation (4) CAD (coronary artery disease) Priority: Secondary Status: Chronic Qualifiers: Coronary Disease-Associated Artery/Lesion type: [place] artery [place] vs. transplanted heart: [place] heart Associated angina: angina presence unspecified Qualified Code(s): I25.10 - Atherosclerotic heart disease of [place] coronary artery without angina pectoris (5) Diabetes Priority: Secondary Status: Chronic Qualifiers: Diabetes mellitus type: type 2 Diabetes mellitus complication status: with unspecified complications Diabetes mellitus snf insulin use: unspecified snf insulin use status Qualified Code(s): E11.8 - Type 2 diabetes mellitus with unspecified complications (6) HLD (hyperlipidemia) Priority: Secondary Status: Chronic Qualifiers: Hyperlipidemia type: pure hypercholesterolemia Qualified Code(s): E78.00 - Pure hypercholesterolemia, unspecified; E78.0 - Pure hypercholesterolemia (7) HTN (hypertension) Priority: Secondary Status: Chronic Qualifiers: Hypertension type: essential hypertension Qualified Code(s): I10 - Essential (primary) hypertension (8) DVT prophylaxis Priority: Secondary Status: Acute Hospital course: Acute HCAP. Pt. reports shortness of breath and dyspnea for the past 3 days with need to increase home oxygen from 2 L to 4 L. Associated cough with sputum production. Patient's pneumonia diagnosis complicated by current COPD exacerbation. History of tobacco abuse with 1-2 packs a day patient reports quitting 4 days ago. Patient hospitalized at [facility] within past 3 months for pneumonia. 2-View CXR today shows superimposed on COPD there is more pronounced congestion and perihilar infiltrates worse in the left lower lobe. Pt. started on IVPB Levaquin, Zosyn, vancomycin in ED. He was continued on IVPB Levaquin at 750 mg daily, Zosyn 3.375 gm Q8, and vancomycin w/pharmacy dosing for infection coverage. Blood cultures 2. Solu-Medrol 60 mg IVPB every 8 with duo neb therapy. He was de escalated to Levaquin and did well. He tested positive for strep pneumonia antigen. Clinically improved and was discharged home to complete amoxicillin to complete 7 days therapy and steroid therapy. - Time Spent with Patient Total time spent providing and/or coordinating discharge services: - Discharge Medications Prescriptions: Amoxicillin [Amoxil] 1,000 mg PO TID #18 capsule predniSONE [PredniSONE] 10 mg PO DAILY #21 tablet Home Medications: Albuterol Sulfate [Proair Hfa] 2 puff IH Q4H 01/22/18 [History] Apixaban [Eliquis] 5 mg PO BID 01/22/18 [History] Atorvastatin Calcium [Lipitor] 20 mg PO HS 01/22/18 [History] Budesonide/Formoterol 160/4.5 [Symbicort 160/4.5] 2 puff IH BIDR 01/22/18 [ History] Cetirizine HCl [All Day Allergy] 10 mg PO DAILY 01/22/18 [History] Cholecalciferol (D-3) [Vitamin D] 1,000 unit PO DAILY 01/22/18 [History] Cyanocobalamin (Vitamin B-12) [Vitamin B12] 1,000 mcg PO DAILY 01/22/18 [History ] Diltiazem HCl [Diltiazem 24Hr Cd] 240 mg PO DAILY 01/22/18 [History] Folic Acid 1 mg PO DAILY 01/22/18 [History] Gabapentin [Neurontin] 1.5 tab PO Q8H PRN 01/22/18 [History] HYDROcodone/Acet 10/325 mg [[place] 10-325 mg] 1 tab PO Q6HR PRN 01/22/18 [History ] Insulin ASPART [NovoLOG] 10 unit SQ TIDWM 01/22/18 [History] Insulin Glargine,Hum.rec.anlog [Lantus Solostar] 50 unit SQ HS 01/22/18 [History ] Ipratropium/Albuterol Neb [Duoneb] 3 ml IH Q6HR 01/22/18 [History] Lisinopril [Zestril] 40 mg PO DAILY 01/22/18 [History] Methocarbamol [Robaxin-750] 750 mg PO QID PRN 01/22/18 [History] Methotrexate [Otrexup] 12.5 mg PO QWEEK 01/22/18 [History] Oxybutynin [Ditropan] 5 mg PO BID 01/22/18 [History] Potassium Chloride [Klor-Con 10] 10 meq PO DAILY 01/22/18 [History] Tamsulosin [Flomax] 0.4 mg PO DAILY 01/22/18 [History] cloNIDine HCl [CloNIDine HCl] 0.1 mg PO BID 01/22/18 [History] predniSONE [PredniSONE] 10 mg PO AD 01/22/18 [History] Amoxicillin [Amoxil] 1,000 mg PO TID #18 capsule 01/26/18 [Rx] predniSONE [PredniSONE] 10 mg PO DAILY #21 tablet 01/26/18 [Rx] Allergies/Adverse Reactions: 3 Allergy/AdvReac Type Severity Reaction Status Date / Time metformin AdvReac See Verified 01/22/18 16:22 Comments Date of admission: 01/22/18 21:51 [facility] Dis[facility]ing clinician: Edd Guerrero - Constitutional Vitals: Temp Pulse Resp BP Pulse Ox 97.8 F 97 15 141/95 96 01/26/18 12:00 01/26/18 12:00 01/26/18 12:00 01/26/18 12:00 01/26/18 12:00 General appearance: Present: cooperative, mild distress (Respiratory), A&O X 3, pleasant, obese, answers questions appropriately - Head Head exam: Present: atraumatic, normocephalic - Eye Eye exam: Present: PERRL, conjuntiva pink, sclera anicteric Pupils: Present: PERRL - Neck Neck exam general surgery: Present: supple, trachea midline. Absent: lymphadenopathy - Respiratory Respiratory exam: Present: CTAB. Absent: accessory muscle use, rales, rhonchi - Cardiovascular Cardiovascular exam: Present: RRR, +S1, +S2. Absent: diastolic murmur, gallop, rubs, systolic murmur - GI/Abdominal GI/Abdominal exam: Present: normal bowel sounds, soft, no peritoneal signs. Absent: distended, tenderness - Extremities Exam Extremities exam: Present: warm, radial pulses palpable and symmetrical. Absent : calf tenderness, cyanotic, pedal edema - Neurological Exam Neurological exam: Present: CN II-XII intact, oriented X3, no focal deficits. Absent: pronater drift, facial droop, speech deficit - Skin Skin exam: Present: dry, intact - Patient Status Disposition: Home, Self-Care Condition: Good Functional capacity at discharge: independent ambulation Overall status at discharge: patient is progressing back to baseline - Discharge Instructions Follow Up With: [facility] [Primary Care Provider] - - Diet and Activity Activity: increase activity as tolerated Diet: advance to your usual diet
[2018-01-26] MEDS ORDERED: Apixaban 5 MG TABLET PO SCH (21:00)
[2018-01-27] MEDS ORDERED: *HR* Methotrexate 2.5 MG TABLET PO SCH (19:00)
== END 2018-01-26 17:54 | disposition home or self-care (01) | DRG 194 ==
LOC: 2NENU 16:17 → EMEROO 16:17 → 2NENU 21:21
PROVIDERS: ADMIT Student in an Organized Health Care Education/Training Program; ATTEND Student in an Organized Health Care Education/Training Program